=== PATIENT | female | born 1935 | race Caucasian/White ===

== ENCOUNTER 2023-09-18 15:09 | Inpatient (IN) | payer OTHER, SELFPAY ==
[2023-09-18] VITALS (9 sets, daily range): BP systolic 94–143; BP diastolic 43–68; BMI 33.7
--- NOTE | 2023-09-18 10:14 | W.PN.CARDCBS ---
Today's Communication / Plan
-
Pacemaker implantation today
defer to hospitalist for UTI/COVID treatment
Impression / Plan
-
This is a summary, please see scanned consult
PCP: Jamaal Crump MD
Primary movement therapist: Sarkis Carpio, DO
88 yo Afghan speaking female h/o HTN, HLD, DM2, CVA, DVT/PE on Eliquis, Hypothyroidism, breast mass and RBBB who presented to [facility] on 09/13 with weakness and confusion. Her HR on arrival was 30-40's, hypotensive, K 6.3, Cr 2.2, glucose 510, +UTI and
COVID +. CT head old thalamic lacunar infarct. CT chest small R pleural effusion. She was treated with Lokelma, IV antibiotics and Remdesivir. She continued to have 2:1 high grade AV block with intermittent CHB even after electrolytes corrected. She
is transferred today for PPM.
Impression/Plan:
#Symptomatic bradycardia/2:1 AVB/Bifascicular block - plan for PPM today, post op abx, CXR
TSH was elevated 12.6 but free T4 normal, Not on any AVN blocking meds
09/2022 Echo preserved EF, moderate LVH, no valvular disease
#HTN - BP has been trending high d/t bradycardia, lisinopril increased to 20mg bid, monitor trends
continue nifedipine xl 90 daily
#Hyperlipidemia - continue lovastatin 40mg daily
#DVT/PE - holding Eliquis prior to PPM, resume post if site stable
#DM2 - SSI, A1c, holding metformin for now, defer to hospitalist for management
#MANOLO - Cr 2.2 on admission down to 1.3 on 09/16, continue to trend
baseline 0.8-1
#Hypothyroidism - continue levothyroxine 125mcg daily
#UTI with urinary retention - continue Flomax, st cath PRN
#COVID +
#Depression
#Breast Mass
Progress Note - Material Preparation Worker
Subjective
Date of Service: September 18, 2023
Physical Exam
Physical Exam
Deferred as patient on procedure table draped
[2023-09-18 12:49] LABS: Glucose - Point of Care 228 mg/dl (70-99)
--- NOTE | 2023-09-18 13:44 | ITS.CL.PACE ---
Child Care Supervisor - Pacemaker Implant
Pacemaker Implant
Procedure Report:
Dual Chamber Pacemaker Placement:
Ms. Camacho is a very pleasant 88 yrs old woman who presented with intermittent complete heart block with baseline RBBB and LAFB and 1stdegree AV block and severe symptomatic bradycardia and is recommended for PPM placement. She has also been
diagnosed with recent COVID, now day # 5 of remdesivir, UTI and diabetes on insulin. �
Primary Applied Behavior Science Specialist: Adonay Costa
Indications: complete heart block
Date of the Procedure: 09/18/23
Pre-Operative Diagnosis: complete heart block
Post-Operative Diagnosis: complete heart block
Procedure Performed: DUAL CHAMBER PACEMAKER IMPLANTATION
Performing Physician:
Neal Montilla MD
Assistants:
EP staff
Anesthesia:
See anesthesia records
Pre-operative antibiotics:
Ancef
Detailed Description of the Procedure:
The patient was identified using hospital identification and informed consent obtained for the procedure. The risks were explained including, but not limited to: Bleeding, infection, arrhythmia, stroke, vascular/cardiac/lung puncture, surgery,
pacemaker dependency/device malfunction. All questions were answered.
The patient was brought to the electrophysiology laboratory in stable condition in fasting state. Continuous electrocardiographic and hemodynamic monitoring was initiated.
The initial rhythm was normal sinus rhythm with type 2 AV block.
The procedure site was meticulously prepared with surgical scrub and allowed to dry with no pooling. Sterile draping was applied to cover the procedure site. The image intensifier was draped with sterile bag and positioned over the patient.
A surgical pause and time out was performed immediately prior to the procedure with review of her medical history, recent labs, allergies and medications with site of procedure identified and consent noted in the chart. Antibiotics pre operatively
given. All team members concurred.
The left infraclavicular region was prepped and draped in the usual sterile fashion. Local anesthesia was administered subcutaneously using 1% lidocaine / Bupivacaine. The left cephalic vein cut down was performed with an incision at the
delto-pectoral groove, and vascular sheaths were introduced for lead access. These were advanced into the right ventricle and the right atrium.
The right ventricular lead was secured in position with an active fixation technique at the apical septal location.
The RA lead was attached in the right atrial appendage with passive fixation.
There was excellent sensing, pacing, and impedance from the leads, with no diaphragmatic stimulation at 10 V output.�Bovie cautery, antibiotics, and fluoroscopy were used.
The sheaths were withdrawn, and the thresholds remained acceptable. The leads were secured in position at the venous entry site with 0-silk. A pocket was fashioned contiguous to the incision. The electrode terminals were connected to the pulse
generator, which was placed into the pocket. The wound was irrigated thoroughly with antibiotic solution.
A Tyrx pouch was installed around the device and wires.
The wound was closed in 3 layers using 2-0 V loc then two layers of 4-0 V loc sutures to the dermis. Steri-strips were applied externally and covered with Aquacel bandage.
Procedure End:
The procedure was tolerated well.
Estimated Blood loss:
10 cc
Specimens Removed:
No cultures and no specimens were obtained. No intraoperative pathology was identified.
Fluoro time:
1.2 min / 2.7mGy
Urine output:
None
Packs / Drains/ Tubes:
None
Instrument / Sponge Count Correct:
Yes
Complications of the Procedure:
None
Condition of Patient at Time of Transfer:
Hemodynamically stable with no neurological or vascular compromise.
Device information:�
Generator: Radario; Model: [id number]; Serial # [id number]
Atrial Lead:
MedbitFlyer; Model: 4574-45; Serial # [id number] �
Measured data in the right atrium was sensing of 1.6 mV, impedance of 570 ohms and threshold of 0.8 V at 0.5ms.
RV Lead:
MedbitFlyer; Model: 5076-58; Serial # [id number] �
Measured data in the RV lead was sensing of 6 mV, impedance of 740 ohms and threshold of 1.0 V at 0.4ms�
Angel parameter settings were DDDR 60-130 bpm. �
����������� Mode Switch: On
����������� Paced AV interval: 180ms
����������� Sensed AV interval: 150 ms.
����������� Rate Adaptive A-V Interval: Off
Output parameters:
����������������������� Amplitude (V)������������� Pulse Width (ms)������� Sensitivity (mV)
����������� RA: ���� 3.5 ����������������� ����������� 0.4������������������ ����������� 0.3
����������� RV:����� 3.5������������������ ����������� 0.4������������������ ����������� 0.9
Summary:
Successful implantation of MRI compatible dual chamber pacemaker
Results/Recommendations:
-Please follow up CXR�
1. Please provide patient with adequate pain control�
Instructions to be given to patient:�
- Please follow up with [facility] at [address] [place] [address] ([phone]) to get your wound checked within 14 days of your discharge.
- Do not wet incision site until after it is evaluated at cardiology clinic. No soaking or bath until then. Showers or Sponge baths are OK.�Dab dry the area after a shower.
- Do not lift left elbow above shoulder, particularly with sudden jerking movements, for 1 month�
- Do not lift anything weighing more than 10 pounds with the left arm for 1 month�
- If you notice any fevers, shortness of breath, lightheadedness, chest pain, or worsening swelling in the wound site, please contact the arrhythmia clinic, contact your power originator, or present to the hospital for evaluation.�
Neal Montilla MD
Electrophysiology
[2023-09-18] MEDS: NOVOLOG vial 4 UNITS SC (14:19)
--- NOTE | 2023-09-18 15:13 | HPS.HSE ---
Family Physician
-
Family Physician: NO INTERVIEW UNKNOWN
Chief Complaint
-
Transfer from outside hospital for pacemaker placement.
History of Present Illness
88-year-old lady with a history of hypertension, diabetes mellitus on insulin, hyperlipidemia depression presented to the hospital because of weakness, bradycardia.
She was noted to be COVID-19 positive and was initiated on remdesivir.
She remained bradycardic and having heart block including second-degree block. She was transferred to [facility] today for urgent pacemaker insertion.
Patient currently in recovery room in cardiovascular unit today.
She is alert and oriented. She is primarily French speaking. Tried to communicate through language line but patient is not forthcoming with details but she did say that she is not experiencing shortness of breath, nausea or vomiting.
Daughter arrived later and that she also concurs that she is not experiencing any shortness of breath, nausea or vomiting.
She is hemodynamically stable in the recovery room. She is off of oxygen saturating okay.
Medical History
Past Medical History
Past Medical History: Reports HTN, Hypercholesterolemia, Hypothyroidism and IDDM
Past Surgical History: Reports None
Social History
Tobacco: Non-smoker
Alcohol: None
Drug: None
Family History
Family History: Not pertinent
Allergies / Home Medications
Allergies reflects when Allergies were last updated in [facility].
Home Medications with original date entered in [facility]
Allergy/Medication List:
Allergies
Allergy/AdvReac Type Severity Reaction Status Date / Time
No Known Allergies Allergy Unverified 04/26/21 13:58
Home Medications
ascorbic acid (vitamin C) 500 mg tablet (Vitamin C) 1,000 mg PO BID #56 tabs 04/26/21
cholecalciferol (vitamin D3) 25 mcg (1,000 unit) tablet 2,000 units PO DAILY #28 tabs 04/26/21
famotidine 20 mg tablet 20 mg PO BID #28 tabs 04/26/21
melatonin 5 mg tablet 5 mg PO HS #14 tabs 04/26/21
zinc sulfate 50 mg zinc (220 mg) capsule 220 mg PO DAILY #14 caps 04/26/21
Med rec not completed. Out of the hospital medication reviewed
Review of Systems
-
Unable to obtain full review of systems at this time due to: Language Barrier (Through language line and daughter)
Constitutional: Denies Fever
EENT: Denies Sore Throat
Respiratory: Denies Trouble Breathing
Abdomen/GI: Denies Nausea
Neurological: Denies Dizzy
Physical Exam
Vital Signs
Vital Signs
Pulse Resp BP Pulse Ox
88 15 94/44 97
09/18/23 15:03 09/18/23 15:03 09/18/23 15:03 09/18/23 15:03
Physical Exam
General: Comfortable
HEENT: Moist mucous membranes
Respiratory: Wheezes (Faint occasional wheeze bilaterally), Crackles and Non Labored Respirations; No Accessory Resp Muscle Use
Cardiac: S1/S2 and Regular Rhythm (Pacer spikes noted); No JVD
GI: Soft and Non Tender
Musculoskeletal: Edema, Left Lower Extremity and Edema, Right Lower Extremity (1+ bilaterally)
Neuro: Awake, Alert, Oriented and No Motor Deficits; No Slurred Speech or Facial Droop
Psych: Calm
Data Reviewed
-
Lab Data: Labs Reviewed by me (Pending)
Impression/Plan
-
Sinus bradycardia with second-degree AV block-s/p emergent pacemaker implantation today. Continue with case monitor.
Wheeze - occasional . On RA .No respiratory distress . Chest x-ray shows possible mild pulm edema. Check BNP. Consider diuretics. Last known echo in 2022 with normal EF.
Weakness-suspect multifactorial. Continue to treat COVID-19 infection and see response of improved heart rate with pacer.
COVID-19 infection-CT chest outside hospital showed no evidence of pneumonia. She is also on room air. Will hold COVID-19 therapeutics and follow on symptomatic treatments.
Hypertension-continue with lisinopril and nifedipine as blood pressure tolerates.
MANOLO-noted on admission out of the hospital. Her creatinine was 2.2. Today at 1.3. Repeat labs today. Continue to follow creatinine.
History of DVT/PE-on Eliquis which will be restarted tonight.
Diabetes mellitus type 2-patient currently on Lantus out of the hospital. Continue on sliding scale insulin. She is normally on insulin 70/30 and metformin at home.
Discussed with daughter at bedside-full code but no prolonged resuscitation or prolonged intubation.
[2023-09-18 16:00] LABS: Hematocrit 33.4 % (37.0-47.0); Hemoglobin 11.2 g/dL (12.0-16.0); Mean Corp Hgb Conc. 33.5 g/dL (33.0-37.0); Mean Corpuscular Hgb 30.1 pg (27.0-31.0); Mean Corpuscular Volume 89.8 fL (81.0-99.0); Mean Platelet Volume 9.8 fL (7.4-10.4); Platelet Count 373 10^3/uL (130-400); Red Blood Cell Count 3.72 10^6/uL (4.20-5.40); Red Cell Dist. Width 13.4 % (11.5-14.5)
[2023-09-18 16:11] LABS: Blood Urea Nitrogen 54 mg/dl (7-17); Calcium 8.6 mg/dl (8.4-10.2); Carbon Dioxide 20 mmol/L (22-30); Chloride 106 mmol/L (98-107); Estimated Creatinine Clearance 29 ml/min; Glucose 224 mg/dl (70-99); Potassium 4.2 mmol/L (3.5-5.1); Sodium 134 mmol/L (135-145); eGFR 36.41
[2023-09-18 16:18] LABS: NT-proBNP 3250 pg/ml
--- NOTE | 2023-09-18 16:20 | CM ---
Reviewed the chart notes and spoke with the patient's daughter at the bedside. The patient speaks Kyrgyz. The patient resides with her daughter in a two story home with a ramp to enter. The patient has a completed bedroom first floor set-up.
The patient has a rolling walker, shower chair, and shower rails. The patient has had [facility] in the past, but no SNF. The patient's confirmed pharmacy of choice is the [facility]. CM continues to be available to
patient/family and is monitoring medical plan for needs at discharge.
Plan: Discharge plans will depend on the patient's progress.
[2023-09-18] MEDS: LIPITOR 10 MG PO (16:37)
[2023-09-18] MEDS: NOVOLOG FLEXPEN-LOW RESISTANCE 1 UNITS SC (16:44)
[2023-09-18 17:13] LABS: Glucose - Point of Care 198 mg/dl (70-99)
[2023-09-18 17:32] LABS: Urine Albumin 1+ (Neg - Trace); Urine Bilirubin Negative (Negative); Urine Character Clear (Clear); Urine Color Yellow; Urine Glucose Negative (Negative); Urine Ketone Negative (Negative); Urine Leukocyte 1+ (Negative); Urine Nitrite Negative (Negative); Urine Occult Blood Negative (Negative); Urine Urobilinogen Negative (Neg - 1+)
[2023-09-18 17:48] LABS: COVID-19 Antigen Negative (Negative)
[2023-09-18 17:51] LABS: Urine Red Blood Cell 0-2 /HPF (0-2); Urine Squamous Cell 0-2 /LPF (Few)
[2023-09-18 17:52] LABS: Urine Bacteria Many (Negative)
[2023-09-18] MEDS: LASIX 20 MG IV (18:02)
[2023-09-18] MEDS: ANCEF 5 IV (20:56)
[2023-09-18] MEDS: ELIQUIS 5 MG PO (20:57)
[2023-09-18 22:04] LABS: Glucose - Point of Care 296 mg/dl (70-99)
[2023-09-18] MEDS: LANTUS 0.149999999999999994 UNITS SC (22:26)
[2023-09-18] MEDS: TYLENOL 650 MG PO (22:26)
[2023-09-19] VITALS (8 sets, daily range): BP systolic 112–164; BP diastolic 52–75; PULSE 86; BMI 33.9
[2023-09-19] MEDS: ANCEF 5 IV (03:57)
[2023-09-19] MEDS: TYLENOL 650 MG PO ×4 (03:57→21:57)
[2023-09-19] MEDS: SYNTHROID 125 MCG PO (05:35)
[2023-09-19 05:39] LABS: Hemoglobin 10.6 g/dL (12.0-16.0); Mean Corp Hgb Conc. 33.1 g/dL (33.0-37.0); Mean Corpuscular Hgb 29.9 pg (27.0-31.0); Mean Corpuscular Volume 90.4 fL (81.0-99.0); Mean Platelet Volume 10.2 fL (7.4-10.4); Platelet Count 338 10^3/uL (130-400); Red Blood Cell Count 3.54 10^6/uL (4.20-5.40); Red Cell Dist. Width 13.3 % (11.5-14.5); White Blood Cell Count 6.9 10^3/uL (4.8-10.8)
[2023-09-19 05:53] LABS: Blood Urea Nitrogen 53 mg/dl (7-17); Calcium 8.5 mg/dl (8.4-10.2); Carbon Dioxide 21 mmol/L (22-30); Chloride 107 mmol/L (98-107); Estimated Creatinine Clearance 30 ml/min; Glucose 212 mg/dl (70-99); Magnesium 2.2 mg/dl (1.6-2.3); Potassium 4.4 mmol/L (3.5-5.1); Sodium 135 mmol/L (135-145); eGFR 36.41
[2023-09-19 07:49] LABS: Glucose - Point of Care 208 mg/dl (70-99)
[2023-09-19] MEDS: NOVOLOG FLEXPEN-LOW RESISTANCE 2 UNITS SC ×2 (08:24→13:58)
[2023-09-19] MEDS: ZOLOFT 50 MG PO (08:24)
[2023-09-19] MEDS: ELIQUIS 5 MG PO ×2 (08:25→20:54)
[2023-09-19] MEDS: ZESTRIL 20 MG PO (08:29)
[2023-09-19] MEDS: PROCARDIA XL (EXTENDED RELEASE) 90 MG PO (08:29)
[2023-09-19 09:36] LABS: Glycohemoglobin (HgbA1c) 7.9 % (4.0-5.6)
--- NOTE | 2023-09-19 10:02 | W.PN.HOSP.TC ---
Today's Communication/Plan
-
Follow ECHO
Continue telemetry.
COVID-19 quarantine per hospital policy
Assessment / Plan
Assessment / Plan
Sinus bradycardia with second-degree AV block-s/p emergent pacemaker implantation today.� Continue with gambling monitor.
Possible CHF -Wheeze - occasional yesterday . Chest x-ray shows possible mild pulm edema.� BNP elevated.� Received a dose of Lasix yesterday. ECHO pending.� Last known echo in 2022 with normal EF.
Weakness-suspect multifactorial.� Continue to treat COVID-19 infection and see response of improved heart rate with pacer.
COVID-19 infection-CT chest outside hospital showed no evidence of pneumonia.� She is also on room air.� COVID antigen nasal testing negative. Will hold COVID-19 therapeutics and follow on symptomatic treatments.
Hypertension-continue with nifedipine as blood pressure tolerates. Lisinopril on hold as she got diuretics yesterday. Follow creatinine and previous serum and a.m.
MANOLO-noted on admission out of the hospital.� Her creatinine was 2.2.� DC cr from other hospital 1.3.� Cr currently 1.4 .� Continue to follow creatinine.
History of DVT/PE-on Eliquis
Diabetes mellitus type 2-patient currently on Lantus out of the hospital.� Continue on sliding scale insulin.� She is normally on insulin 70/30 and metformin at home.
Full code
Anticipated Discharge: Within 24 hours
Subjective/Interval History
-
Date of Service: September 19, 2023
Currently getting echocardiogram at bedside.
Limited interval history due to language barrier
Denies shortness of breath
Objective Data
-
Labs:
Laboratory Results
09/19/23
03:46
WBC 6.9
Hgb 10.6 L
Hct 32.0 L
Plt Count 338
Sodium 135
Potassium 4.4
Chloride 107
Carbon Dioxide 21 L
BUN 53 H
Creatinine 1.4 H
Glucose 212 H
Calcium 8.5
Vital Signs:
Vital Signs
Temp Pulse Resp BP Pulse Ox
97.7 F 85 14 152/69 97
09/19/23 07:35 09/19/23 08:29 09/19/23 07:35 09/19/23 08:29 09/19/23 07:35
I&O
09/18/23 09/19/23 09/20/23
06:59 06:59 06:59
Intake Total 120 / 120
Output Total 450 / 450
Balance -330 / -330
Review of Systems
-
Respiratory: Denies Trouble Breathing
Cardiac: Reports Other (pacer site pain is ok)
Abdomen/GI: Denies Abdominal Pain, Nausea or Vomiting
Neuro: Denies Dizzy
Physical Exam
-
General: No Apparent Distress
HEENT: Moist Mucous Membranes
Respiratory: Clear to Auscultation (anteriorly)
Cardiac: Regular Rhythm and S1/S2
GI: Soft
Neuro: Awake, Alert and Oriented (place and person)
Psych: Calm; Negative Agitated
Data Reviewed
-
Labs: Labs Reviewed by me
[2023-09-19 11:44] LABS: Glucose - Point of Care 255 mg/dl (70-99)
[2023-09-19 13:49] LABS: Glucose - Point of Care 228 mg/dl (70-99)
--- NOTE | 2023-09-19 14:45 | CM ---
Reviewed the chart notes. PT evaluation pending. CM continues to be available to patient/family and is monitoring medical plan for needs at discharge.
Plan: Discharge plans will depend on the patient's progress.
[2023-09-19 16:54] LABS: Glucose - Point of Care 257 mg/dl (70-99)
[2023-09-19] MEDS: NOVOLOG FLEXPEN-LOW RESISTANCE 3 UNITS SC (16:56)
[2023-09-19] MEDS: LIPITOR 10 MG PO (16:57)
--- NOTE | 2023-09-19 17:00 | PTCARENOTE ---
Immobilizer sling removed after communication with Juan Taylor from cardiology.
[2023-09-19 21:53] LABS: Glucose - Point of Care 176 mg/dl (70-99)
[2023-09-19] MEDS: LANTUS 0.149999999999999994 UNITS SC (21:57)
[2023-09-20] VITALS (8 sets, daily range): BP systolic 138–166; BP diastolic 54–80; BMI 34.3
[2023-09-20] MEDS: APRESOLINE 5 MG IV (03:19)
[2023-09-20] MEDS: TYLENOL 650 MG PO ×3 (03:19→20:12)
--- NOTE | 2023-09-20 05:28 | PTCARENOTE ---
Patient's 0300 BP elevated @ 166/70, HR 86. PRN Hydralazine given - see SEP. Rechecked BP approximately 1 hour later - BP 166/68, HR 84. Patient offering no complaints. CRM ANALYST notified. Instructed this RN to obtain manual BP - manual BP of 158/54. CRM ANALYST
notified of manual BP. No new orders at this time.
[2023-09-20] MEDS: SYNTHROID 125 MCG PO (05:36)
[2023-09-20 06:10] LABS: Hematocrit 33.3 % (37.0-47.0); Hemoglobin 11.1 g/dL (12.0-16.0); Mean Corp Hgb Conc. 33.3 g/dL (33.0-37.0); Mean Corpuscular Hgb 30.1 pg (27.0-31.0); Mean Corpuscular Volume 90.2 fL (81.0-99.0); Platelet Count 301 10^3/uL (130-400); Red Blood Cell Count 3.69 10^6/uL (4.20-5.40); Red Cell Dist. Width 13.1 % (11.5-14.5); White Blood Cell Count 6.1 10^3/uL (4.8-10.8)
[2023-09-20 06:40] LABS: Blood Urea Nitrogen 45 mg/dl (7-17); Calcium 8.9 mg/dl (8.4-10.2); Carbon Dioxide 26 mmol/L (22-30); Chloride 104 mmol/L (98-107); Estimated Creatinine Clearance 38 ml/min; Glucose 163 mg/dl (70-99); Potassium 4.5 mmol/L (3.5-5.1); Sodium 137 mmol/L (135-145); eGFR 48.63
[2023-09-20 07:36] LABS: Glucose - Point of Care 166 mg/dl (70-99)
--- NOTE | 2023-09-20 07:56 | W.PN.CD ---
Today's Communication / Plan
-
- Continue diuresis - lasix 40 mg PO QD
- Increase lisinopril to 20 mg BID
- If BP tolerates likely can be discharge in AM
Impression / Plan
-
PCP: Jamaal Crump MD
Primary salesperson parts: Sarkis Carpio, DO
88 yo Spanish speaking female h/o HTN, HLD, DM2, CVA, DVT/PE on Eliquis, Hypothyroidism, breast mass and RBBB who presented to [facility] on 09/13 with weakness and confusion. Her HR on arrival was 30-40's, hypotensive, K 6.3, Cr 2.2, glucose 510, +UTI and
COVID +. CT head old thalamic lacunar infarct. CT chest small R pleural effusion. She was treated with Lokelma, IV antibiotics and Remdesivir. She continued to have 2:1 high grade AV block with intermittent CHB even after electrolytes corrected. She
is transferred today for PPM.
Impression/Plan:
#Symptomatic bradycardia/2:1 AVB/Bifascicular block
s/p PPM - 09/18/23 - Medtronic dual chamber.
TSH was elevated 12.6 but free T4 normal, Not on any AVN blocking meds
09/2022 Echo preserved EF, moderate LVH, no valvular disease
Follow up ECHO 09/21/23 - LVEF 55% - Moderate MR.
# Mitral regurgitation
Diuresis with lasix
Likley discharge at 40 mg QD prn for weight gain
# Left upper ext swelling
h/o DVT in jun 2023
Ultrasound to check for DVT manasa with PPM placed
possible venous occlusion with PPM placement
if no DVT, intermittent compression
Continue Eliquis / Plavix
#Acute heart failure
Elevated BNP, congested CXR
Moderate MR on ECHO
diastolic heart failure with fluid overload.
now paced rhythm likely improve the cardiac output and help congestion
#HTN - BP has been trending high
Increase lisinopril to 20mg bid, monitor trends
continue nifedipine xl 90 daily
#UTI
-admitted with UTI to [facility] s/p treated
- Now resolved.
#Hyperlipidemia - continue lovastatin 40mg daily
#DVT/PE - holding Eliquis prior to PPM, resume post if site stable
#DM2 - SSI, A1c, holding metformin for now, defer to hospitalist for management
#MANOLO - Cr 2.2 on admission down to 1.1 on today, continue to trend
baseline 0.8-1
#Hypothyroidism - continue levothyroxine 125mcg daily
#UTI with urinary retention - continue Flomax, st cath PRN
#COVID +
#Depression
#Breast Mass
Physical Exam
Vital Signs/Labs
Vital Signs
Temp Pulse Resp BP Pulse Ox
98.6 F 84 18 158/54 98
09/20/23 03:21 09/20/23 04:47 09/20/23 03:21 09/20/23 05:00 09/20/23 03:21
09/19/23 09/20/23 09/21/23
06:59 06:59 06:59
Actual Weight 86.863 kg 87.815 kg
09/20/23 04:49
09/20/23 04:49
Magnesium 2.2 mg/dl (1.6-2.3) 09/19/23 03:46
09/18/23
15:48
Phi-[id number]-[id number] Pept 3250
Physical Exam
Constitutional: No acute distress and Comfortable
EENT: Anicteric and Moist mucous membranes
Cardiovascular: Rhythm & rate is regular and JVD pressure is normal
Respiratory: Respiratory effort normal
Neuro/Psych: Alert, Oriented, AO x 3 and Other (setswana speaking but understands Sami. )
Other: Cardiac Device Site
Data Reviewed
-
Date of Service: September 20, 2023
Medical Decision Making: Reviewed Test Results, Independent Historian Assessment, Test Interpretation and Review of Case with other Provider
EKG: Tracing Personally Visualized and interpreted
Echo: Report Reviewed by me
Labs: Labs Reviewed by me
Old Records: Reviewed
--- NOTE | 2023-09-20 08:19 | PN.CDI ---
CDI
- -
CDI:
Physician Documentation Request
Admit Date: 09/18/23 15:09
Dear Doctor Roldan
Please review the following and provide your response in the progress notes.
Clinical Indicators:
The diagnosis of UTI was documented on 09/17 Pacemaker report but is not consistently noted in subsequent documentation.
- 09/17 Pacemaker report 'She has also been diagnosed with recent COVID, now day # 5 of remdesivir, UTI and diabetes on insulin'
- Abx Ancef given for surgery prophylaxis
Please clarify the following:
____ - UTI was present on admission and is now resolved.
____ - UTI was present on admission and is still being monitored, evaluated or treated
____ - UTI was ruled out
____ - UTI is still a likely, suspected, probable diagnosis
____ - Other
Use of terms such as suspected, likely, concern for, or probable (associated with a specific diagnosis that is being evaluated, monitored, or treated as if it exists) are acceptable and can be coded in the inpatient setting, when documented at the
time of discharge.
Thank you,
Merlin Laughlin RN
CDI Specialist
Please use your independent medical judgment in providing your response.
[2023-09-20] MEDS: NOVOLOG FLEXPEN-LOW RESISTANCE 1 UNITS SC (08:54)
[2023-09-20] MEDS: PROCARDIA XL (EXTENDED RELEASE) 90 MG PO (08:54)
[2023-09-20] MEDS: ZOLOFT 50 MG PO (08:55)
[2023-09-20] MEDS: ELIQUIS 5 MG PO ×2 (08:55→20:11)
[2023-09-20] MEDS: ZESTRIL PO (08:55)
[2023-09-20 12:26] LABS: Glucose - Point of Care 203 mg/dl (70-99)
[2023-09-20] MEDS: NOVOLOG FLEXPEN-LOW RESISTANCE 2 UNITS SC ×2 (12:27→17:32)
--- NOTE | 2023-09-20 12:59 | W.PN.HOSP.TC ---
Today's Communication/Plan
-
Left arm ultrasound
DC planning
Assessment / Plan
Assessment / Plan
Sinus bradycardia with second-degree AV block-s/p emergent pacemaker implantation 09/17. continue with night monitor.
Possible CHF - Chest x-ray shows possible mild pulm edema.� BNP elevated.� Received a dose of Lasix . ECHO with normal EF.� Last known echo in 2022 with normal EF. Chest clear and asymptomatic. Diuretics per cardiology further.
Weakness-suspect multifactorial.� Improved.
COVID-19 infection-CT chest outside hospital showed no evidence of pneumonia.� She remains on room air.� COVID antigen nasal testing negative. Will hold COVID-19 therapeutics and follow on symptomatic treatments.
Hypertension-continue with nifedipine as blood pressure tolerates. Resume lisinopril . Follow creatinine and previous serum and a.m.
MANOLO-noted on admission out of the hospital.� Her creatinine was 2.2.� DC cr from other hospital 1.3.� Cr currently 1.1 .� Continue to follow creatinine.
History of DVT/PE-on Eliquis
Left arm swelling-noted post pacemaker insertion-check ultrasound of the left arm.
Diabetes mellitus type 2-patient currently on Lantus out of the hospital.� Continue on sliding scale insulin.� She is normally on insulin 70/30 and metformin at home.
Full code
Follow ultrasound of the left arm and cardiology recommendations from today and start discharge plan.
Discussed with daughter at bedside.
Anticipated Discharge: Today
Subjective/Interval History
-
Date of Service: September 20, 2023
No fever or chills. No cough or shortness of breath. No sore throat.
Feeling improved.
Did okay with PT yesterday.
History is from daughter who is at bedside.
Objective Data
-
Labs:
Laboratory Results
09/20/23
04:49
WBC 6.1
Hgb 11.1 L
Hct 33.3 L
Plt Count 301
Sodium 137
Potassium 4.5
Chloride 104
Carbon Dioxide 26
BUN 45 H
Creatinine 1.1 H
Glucose 163 H
Calcium 8.9
Vital Signs:
Vital Signs
Temp Pulse Resp BP Pulse Ox
98.2 F 82 16 138/62 98
09/20/23 11:54 09/20/23 11:54 09/20/23 11:54 09/20/23 11:54 09/20/23 11:54
I&O
09/19/23 09/20/23 09/21/23
06:59 06:59 06:59
Intake Total 120 / 120 1460 / 1460
Output Total 450 / 450 500 / 500
Balance -330 / -330 960 / 960
Review of Systems
-
Unable to obtain full review of systems at this time due to: Language Barrier
Abdomen/GI: Denies Abdominal Pain, Nausea or Vomiting
Neuro: Denies Dizzy or Headache
Physical Exam
-
General: No Apparent Distress
HEENT: Moist Mucous Membranes
Respiratory: Clear to Auscultation
Cardiac: Regular Rhythm, S1/S2 and Other (Pacemaker dressing)
GI: Soft
Musculoskeletal: Edema, Left Upper Extrem; Negative No Edema (Trace lower extremity edema)
Neuro: AO x 3
Data Reviewed
-
Labs: Labs Reviewed by me
--- NOTE | 2023-09-20 15:54 | CM ---
Reviewed the chart notes and spoke with the patient's daughter at doorway. IMM explained and copy left for review. Patient is Covid +. PT recommending home care. Daughter requests [facility] since patient has used them in the past. CM
continues to be available to patient/family and is monitoring medical plan for needs at discharge.
Plan: Discharge to home with [facility] services.
[2023-09-20 17:30] LABS: Glucose - Point of Care 205 mg/dl (70-99)
[2023-09-20] MEDS: LIPITOR 10 MG PO (17:32)
[2023-09-20] MEDS: ZESTRIL 20 MG PO (20:11)
[2023-09-20 22:34] LABS: Glucose - Point of Care 234 mg/dl (70-99)
[2023-09-20] MEDS: LANTUS 0.149999999999999994 UNITS SC (23:20)
[2023-09-21 03:40] VITALS: BP 177/78
[2023-09-21] MEDS: APRESOLINE 5 MG IV ×2 (03:41→08:46)
[2023-09-21 03:42] VITALS: BP 177/78
[2023-09-21 05:31] VITALS: BP 160/52
[2023-09-21 06:00] VITALS: BMI 33.6
[2023-09-21] MEDS: SYNTHROID 125 MCG PO (06:07)
[2023-09-21 07:33] LABS: Glucose - Point of Care 209 mg/dl (70-99)
--- NOTE | 2023-09-21 07:44 | W.PN.CD ---
Today's Communication / Plan
-
- Stable for discharge from cardiac stand point
- Incision check in Cardiology in 1 week then follow up with Dr. Alejandro
Impression / Plan
-
PCP: Jamaal Crump MD
Primary linotype mechanic: Sarkis Carpio, DO
88 yo Chinese speaking female h/o HTN, HLD, DM2, CVA, DVT/PE on Eliquis, Hypothyroidism, breast mass and RBBB who presented to [facility] on 09/13 with weakness and confusion. Her HR on arrival was 30-40's, hypotensive, K 6.3, Cr 2.2, glucose 510, +UTI and
COVID +. CT head old thalamic lacunar infarct. CT chest small R pleural effusion. She was treated with Lokelma, IV antibiotics and Remdesivir. She continued to have 2:1 high grade AV block with intermittent CHB even after electrolytes corrected. She
is transferred today for PPM.
Impression/Plan:
#Symptomatic bradycardia/2:1 AVB/Bifascicular block
s/p PPM - 09/18/23 - [employer] dual chamber.
TSH was elevated 12.6 but free T4 normal, Not on any AVN blocking meds
09/2022 Echo preserved EF, moderate LVH, no valvular disease
Follow up ECHO 09/21/23 - LVEF 55% - Moderate MR.
# Mitral regurgitation
Diuresis with lasix
Likely discharge at 40 mg QD prn for weight gain
# Left upper ext swelling
Resolved. possible dependent edema.
h/o DVT in jun 2023
Ultrasound 09/20/23 - negative for DVT
Continue Eliquis / Plavix
#Acute heart failure
improved
Elevated BNP, congested CXR
Moderate MR on ECHO
diastolic heart failure with fluid overload.
now paced rhythm likely improve the cardiac output and help congestion
#HTN - BP has been trending high
Increase lisinopril to 20mg bid, monitor trends
continue nifedipine xl 90 daily
#UTI
-admitted with UTI to [facility] s/p treated
-Now resolved.
#Hyperlipidemia - continue lovastatin 40mg daily
#DVT/PE - holding Eliquis prior to PPM, resume post if site stable
#DM2 - SSI, A1c, holding metformin for now, defer to hospitalist for management
#MANOLO - Cr 2.2 on admission down to 1.1
baseline 0.8-1
#Hypothyroidism - continue levothyroxine 125mcg daily
#UTI with urinary retention - continue Flomax, st cath PRN
#COVID +
#Depression
#Breast Mass
Physical Exam
Vital Signs/Labs
Vital Signs
Temp Pulse Resp BP Pulse Ox
97.6 F 86 18 160/52 98
09/21/23 03:42 09/21/23 05:31 09/21/23 03:42 09/21/23 05:31 09/21/23 03:42
09/20/23 09/21/23 09/22/23
06:59 06:59 06:59
Actual Weight 87.815 kg 86.046 kg
09/20/23 04:49
09/20/23 04:49
Magnesium 2.2 mg/dl (1.6-2.3) 09/19/23 03:46
09/18/23
15:48
[id number] Pept 3250
Physical Exam
Constitutional: No acute distress and Comfortable
EENT: Anicteric and Moist mucous membranes
Cardiovascular: Rhythm & rate is regular, JVD pressure is normal, Systolic murmur present and Rub present (both arms looks similar - no sign of edema.)
Respiratory: Respiratory effort normal, Lungs clear to auscul. and Wheeze Absent
GI: Soft, Non tender and Normal bowel sounds
Neuro/Psych: Alert and Other
Other: Cardiac Device Site
Data Reviewed
-
Date of Service: September 21, 2023
Medical Decision Making: Reviewed Test Results and Independent Historian Assessment
EKG: Tracing Personally Visualized and interpreted
Echo: Report Reviewed by me
X-Ray/CT/US/MRI/NUC/PET: Image Personally Visualized and interpreted
Labs: Labs Reviewed by me
Old Records: Reviewed
[2023-09-21 08:04] VITALS: BP 169/73
[2023-09-21] MEDS: ZOLOFT 50 MG PO (08:43)
[2023-09-21] MEDS: PROCARDIA XL (EXTENDED RELEASE) 90 MG PO (08:43)
[2023-09-21] MEDS: LASIX 40 MG PO (08:43)
[2023-09-21] MEDS: ELIQUIS 5 MG PO (08:43)
[2023-09-21] MEDS: NOVOLOG FLEXPEN-LOW RESISTANCE 2 UNITS SC ×2 (08:44→12:42)
[2023-09-21] MEDS: ZESTRIL 20 MG PO (08:44)
--- NOTE | 2023-09-21 09:47 | CM ---
Reviewed the chart notes. Patient to be discharged to home with [facility] services. continues to be available to patient/family and is monitoring medical plan for needs at discharge.
Plan: Discharge to home with [facility] services. [facility] .
[2023-09-21] MEDS: TYLENOL 650 MG PO ×2 (10:44→14:47)
[2023-09-21 10:50] VITALS: BP 152/68
[2023-09-21 12:44] LABS: Glucose - Point of Care 206 mg/dl (70-99)
--- NOTE | 2023-09-21 13:33 | W.PN.HOSP.TC ---
Today's Communication/Plan
-
DC
Assessment / Plan
Assessment / Plan
Sinus bradycardia with second-degree AV block-s/p emergent pacemaker implantation 09/17. continue with ekg monitor.
Possible acute diastolic CHF - Chest x-ray shows possible mild pulm edema.� BNP elevated.� Received a dose of Lasix . ECHO with normal EF.� Last known echo in 2022 with normal EF. Chest clear and asymptomatic. Diuretics per cardiology further.
According to the daughter normal weight is around 182 pounds. She is 89 here.
Weakness-suspect multifactorial.� Improved.
COVID-19 infection-CT chest outside hospital showed no evidence of pneumonia.� She remains on room air.� COVID antigen nasal testing negative. Will hold COVID-19 therapeutics and follow on symptomatic treatments.
Hypertension-continue with nifedipine as blood pressure tolerates. Resume lisinopril . Follow creatinine and previous serum and a.m.
MANOLO-noted on admission out of the hospital.� Her creatinine was 2.2.� DC cr from other hospital 1.3.� Cr currently 1.1 .� Continue to follow creatinine.
History of DVT/PE-on Eliquis
Left arm swelling-noted post pacemaker insertion- ultrasound of the left arm negative for DVT. Suspect venous condition during the procedure. Advised arm compression sleeve and elevation.
Diabetes mellitus type 2-patient currently on Lantus out of the hospital.� Continue on sliding scale insulin.� She is normally on insulin 70/30 and metformin at home.
Full code
Medically stable for discharge home.
Discussed with daughter at bedside clinical diagnosis, change in medication, follow-up blood test and physician follow-ups.
Total time of discharge 32 minutes
Anticipated Discharge: Today
Subjective/Interval History
-
Date of Service: September 21, 2023
Left arm swelling persist there is no worse. No pain.
No shortness of breath or palpitations.
No nausea vomiting.
No fever chills.
Objective Data
-
Vital Signs:
Vital Signs
Temp Pulse Resp BP Pulse Ox
97.9 F 92 16 152/68 98
09/21/23 10:50 09/21/23 10:50 09/21/23 10:50 09/21/23 10:50 09/21/23 10:50
I&O
09/20/23 09/21/23 09/22/23
06:59 06:59 06:59
Intake Total 1460 / 1460 1740 / 1740
Output Total 500 / 500 450 / 450
Balance 960 / 960 1290 / 1290
Review of Systems
-
EENT: Denies Sore Throat
Respiratory: Denies Cough
Neuro: Denies Dizzy
Physical Exam
-
General: No Apparent Distress
HEENT: Moist Mucous Membranes
Respiratory: Clear to Auscultation
Cardiac: Regular Rhythm and S1/S2
GI: Soft
Musculoskeletal: Edema, Left Upper Extrem, Edema, Right Lower Extrem (Trace bilaterally) and Edema, Left Lower Extrem
Neuro: AO x 3
Psych: Calm
--- NOTE | 2023-09-21 13:37 | W.DS.TRANS ---
DC Summary - [employer]
-
Discharge Instructions:
Discharge Diagnosis/Procedures Pacemaker insertion
COVID infection
Acute diastolic CHF
Moderate MR
Diet 2 Gram Sodium
Activity No strenuous activity
Additional Activity See attached instructions.
Driving Restrictions No driving for 1 week
Bathing Restrictions OK to Shower
Blood Work BMP in one week -arrange through your PCP
Instructions:
Stand-Alone Forms: DC Inst - Implanted Device
Changes to Home Medications: Yes
Discharge Medications:
DC Medications w/original date entered in [facility]
acetaminophen 325 mg tablet 650 mg PO Q4HPRN PRN mild pain /fever >100.4 #1 tab 09/20/23
apixaban 5 mg tablet (Eliquis) 5 mg PO BID #1 tab 09/20/23
clopidogrel 75 mg tablet (Plavix) 75 mg PO DAILY #1 tab 09/20/23
furosemide 40 mg tablet 40 mg PO DAILY #14 tabs 09/20/23
insulin human U-100 NPH-regulr 70-30 mix 100 unit/mL subcutaneous susp (Novolin 70/30 U-100 Insulin) 32 unit (0.32 mL) SC BID #10 mL 09/20/23
levothyroxine 125 mcg tablet 125 mcg PO DAILY AT 0700 #1 tab 09/20/23
lisinopril 20 mg tablet 20 mg PO DAILY #1 tab 09/20/23
lovastatin 40 mg tablet 40 mg PO DAILY #1 tab 09/20/23
metformin 500 mg tablet 500 mg PO DAILY #1 tab 09/20/23
nifedipine 30 mg tablet,extended release 90 mg PO DAILY #1 tab 09/20/23
sertraline 50 mg tablet 50 mg PO DAILY #1 tab 09/20/23
Home Medication Changes
New medication - Lasix
Pending Results: No
== END 2023-09-21 15:44 | disposition home health service (06) | DRG 242 ==
LOC: 2 NORTH 15:09
PROVIDERS: Internal Medicine Cardiovascular Disease; Nurse Practitioner Adult Health; ADMITTING PHYSICIAN Internal Medicine
PROC: 02HK3JZ Insertion of Pacemaker Lead into Right Ventricle, Percutaneous Approach (ICD-10-PCS; 2023-09-18)
PROC: 3E0102A Introduction of Anti-Infective Envelope into Subcutaneous Tissue, Open Approach (ICD-10-PCS; 2023-09-18)
PROC: 0JH606Z Insertion of Pacemaker, Dual Chamber into Chest Subcutaneous Tissue and Fascia, Open Approach (ICD-10-PCS; 2023-09-18)
PROC: 02H63JZ Insertion of Pacemaker Lead into Right Atrium, Percutaneous Approach (ICD-10-PCS; 2023-09-18)
DX: I44.2 Atrioventricular block, complete (principal); I50.31 Acute diastolic (congestive) heart failure; U07.1 COVID-19; N17.9 Acute kidney failure, unspecified; N39.0 Urinary tract infection, site not specified; E11.9 Type 2 diabetes mellitus without complications; E03.9 Hypothyroidism, unspecified; F32.A Depression, unspecified; I45.2 Bifascicular block; R06.2 Wheezing; R33.9 Retention of urine, unspecified; I34.0 Nonrheumatic mitral (valve) insufficiency; I11.0 Hypertensive heart disease with heart failure; E78.00 Pure hypercholesterolemia, unspecified; Z11.52 Encounter for screening for COVID-19; Z79.4 Long term (current) use of insulin; Z86.711 Personal history of pulmonary embolism; Z86.718 Personal history of other venous thrombosis and embolism; Z86.73 Personal history of transient ischemic attack (TIA), and cerebral infarction without residual deficits; Z79.890 Hormone replacement therapy
CPT/HCPCS: 33208; 71045; 80048; 81003; 81015; 82962; 83036; 83735; 83880; 85027; 87086; 87811; 93005; 93306; 93971; 97162; 97166; C1785; C1892; C1898